=== PATIENT | female | born 1990 | race Caucasian/White ===

== ENCOUNTER 2019-04-30 03:44 | Emergency (ER) | payer OTHER, SELFPAY ==
--- NOTE | ~2019-04-30 | XR_ITS ---
EXAMINATION: XR chest 2V DATE: 04/30/2019 04:28 INDICATION: Cough. TECHNIQUE: Frontal and lateral views of the chest were obtained. COMPARISON: Chest 2 views 10/15/2016 FINDINGS: There is no pneumonia, pleural effusion, or pneumothorax. The heart size is normal. IMPRESSION: 1. No acute cardiopulmonary disease. Reviewed, dictated and finalized at location A. [facility]
[2019-04-30 03:46] VITALS: BP 141/89; PULSE 97; RESP 20; TEMP 36.4; O2SAT 98
--- NOTE | 2019-04-30 04:10 | ED.PSYCH ---
HPI - Psych General Chief Complaint: Psychiatric Symptoms <Buddy Taylor MD - Last Filed: 04/30/19 05:32> Stated Complaint: Pysch evaluation <Buddy Taylor MD - Last Filed: 04/30/19 05:32> Time Seen by Provider: 04/30/19 04:00 <Buddy Taylor MD - Last Filed: 04/30/19 05:32> Source: patient <Buddy Taylor MD - Last Filed: 04/30/19 05:32> Mode of arrival: ambulatory <Buddy Taylor MD - Last Filed: 04/30/19 05:32> Limitations: no limitations <Buddy Taylor MD - Last Filed: 04/30/19 05:32> History of Present Illness HPI Narrative: 29-year-old woman comes in today complaining of suicidal ideation, wanting drug treatment, and being distraught over her significant other recent . She states that this afternoon she woke up and found him next to her. She states she wants to follow him by OD. She denies prior suicidal ideation but has attempted outpatient drug treatment several times. <Buddy Taylor MD - Last Filed: 04/30/19 05:32> MD complaint: suicidal ideation and feels depressed <Buddy Taylor MD - Last Filed: 04/30/19 05:32> Onset (ago): day(s) (1) <Buddy Taylor MD - Last Filed: 04/30/19 05:32> Duration: constant <Buddy Taylor MD - Last Filed: 04/30/19 05:32> History of same: No <Buddy Taylor MD - Last Filed: 04/30/19 05:32> Relieving factors: none <Buddy Taylor MD - Last Filed: 04/30/19 05:32> Exacerbating factors: none <Buddy Taylor MD - Last Filed: 04/30/19 05:32> Context: recent drug abuse and significant life stressor <Buddy Taylor MD - Last Filed: 04/30/19 05:32> Associated psychiatric symptoms: depression and suicidal ideation <Buddy Taylor MD - Last Filed: 04/30/19 05:32> Associated symptoms: vomiting ( after taking fentanyl this morning.) <Buddy Taylor MD - Last Filed: 04/30/19 05:32> Treatments prior to arrival: none <Buddy Taylor MD - Last Filed: 04/30/19 05:32> If self harm: admits thoughts of self harm and has plan <Buddy Taylor MD - Last Filed: 04/30/19 05:32> Related Data Allergies/Adverse Reactions: Allergies Allergy/AdvReac Type Severity Reaction Status Date / Time No Known Allergies Allergy Verified 05/25/15 00:07 <Buddy Taylor MD - Last Filed: 04/30/19 05:32> Review of Systems Constitutional: Constitutional: Denies chills, Denies fatigue, Denies fever(s) and Denies weakness <Buddy Taylor MD - Last Filed: 04/30/19 05:32> Eyes: Eyes: Denies change in vision and Denies photophobia <Buddy Taylor MD - Last Filed: 04/30/19 05:32> ENT: Denies dysphagia, Reports nasal congestion and Denies sore throat <Buddy Taylor MD - Last Filed: 04/30/19 05:32> Cardiovascular: Cardiovascular: Denies chest pain and Denies radiating jaw, neck or arm pain <Buddy Taylor MD - Last Filed: 04/30/19 05:32> Respiratory: Respiratory: Denies cough, Denies dyspnea and Denies wheezing <Buddy Taylor MD - Last Filed: 04/30/19 05:32> Gastrointestinal: Gastrointestinal: Denies abdominal pain, Denies diarrhea, Reports nausea and Reports vomiting <Buddy Taylor MD - Last Filed: 04/30/19 05:32> Genitourinary: Genitourinary: Denies hematuria, Denies nocturia and Denies dysuria <Buddy Taylor MD - Last Filed: 04/30/19 05:32> Musculoskeletal: Musculoskeletal: Denies back pain, Denies arthralgias, Denies joint swelling and Denies muscle cramps <Buddy Taylor MD - Last Filed: 04/30/19 05:32> Integumentary/Breasts: Skin/Breast: Denies pruritus, Denies erythema and Denies rash <Buddy Taylor MD - Last Filed: 04/30/19 05:32> Neurologic: Denies vertigo, Denies dizziness and Denies syncope <Buddy Taylor MD - Last Filed: 04/30/19 05:32> Psychiatric: Psychiatric: Denies anxiety, Reports depression and Reports suicidal ideation <Buddy Taylor MD
--- NOTE | 2019-04-30 04:22 | ECG_ITS ---
Measurements Intervals Elizabeth Rate: 88 P: 30 AK: 156 QRS: 21 QRSD: 104 T: 31 QT: 368 QTc: 447 Interpretive Statements SINUS RHYTHM BASELINE ARTIFACT- I, II, III, AVL NORMAL ECG Electronically Signed On 04-30-2019 8:15:57 [employer]ET[employer] P[employer] by Valentín Lott D.O.
[2019-04-30 04:52] LABS: Basophils Absolute Auto 0.03 K/mm3 (0.00-0.10); Basophils Percent Auto 0.4 % (0.0-1.0); Eosinophils Absolute Auto 0.06 K/mm3 (0.02-0.50); Eosinophils Percent Auto 0.9 % (1.0-6.0); Hematocrit 40.1 % (35.0-49.0); Hemoglobin 13.8 g/dL (12.0-15.0); Immature Granulocyte Absolute 0.01 K/mm3 (0.00-0.00); Immature Granulocyte Percent A 0.1 % (0.0-0.0); Lymphocytes Percent Auto 39.2 % (18.0-42.0); Mean Corpuscular HGB Conc 34.4 g/dL (32.0-36.0); Mean Corpuscular Hemoglobin 30.6 pg (27.0-31.0); Mean Corpuscular Volume 88.9 fL (78.0-102.0); Mean Platelet Volume 11.3 fl (9.2-11.8); Monocytes Absolute Auto 0.37 K/mm3 (0.10-0.90); Monocytes Percent Auto 5.4 % (2.0-11.0); Neutrophils Absolute Auto 3.7 K/mm3 (1.7-7.2); Platelet Count Result 193 K/mm3 (150-420); Red Blood Count 4.51 M/mm3 (4.20-5.40); Red Cell Distribution Width 12.8 % (11.6-14.4); White Blood Count 6.9 K/mm3 (4.8-10.8)
[2019-04-30 04:56] LABS: Add Urine Microscopic? YES; Appearance Urine Clear (Clear); Bilirubin Urine Negative (Negative); Blood Urine Negative (Negative); Color Urine Yellow (Yellow); Glucose Urine UA Negative (Negative); Ketones Urine Negative (Negative); Leukocyte Esterase Ur 1+ LEU/UL (Negative); Nitrate Urine Negative (Negative); Protein Urine Negative (Negative); Urobilinogen Urine 0.2 mg/dL (0.2-1.0)
[2019-04-30 04:59] LABS: Pregnancy On Board Control Positive; Urine Pregnancy Test Negative
--- NOTE | 2019-04-30 05:00 | PC.NURSE ---
Pt. watching TV, sitter at bedside. Pt. crying and states she is scared to go to sleep.
[2019-04-30 05:04] LABS: Bacteria Urine Trace /hpf; RBC Urine None seen /hpf (0-2); Squamous Epithelial Cell Urine Few /hpf (Few); WBC Urine 0-3 /hpf (0-3)
[2019-04-30 05:09] LABS: Amphetamine Screen Urine Positive (Negative); Barbiturate Screen Urine Negative (Negative); Benzodiazepines Screen Urine Negative (Negative); Cannabinoid Screen Urine Negative (Negative); Cocaine Screen Urine Negative (Negative); Methadone Screen Urine Negative (Negative); Opiate Screen Urine Negative (Negative); Phencyclidine Screen Urine Negative (Negative)
[2019-04-30 05:12] LABS: Acetaminophen 0 ug/mL (10-30); Ethanol < 3 mg/dL (0-6); Salicylate 1.2 mg/dL (2.8-20.0)
[2019-04-30 05:17] LABS: Alanine Aminotransferase 152 U/L (14-59); Albumin Level 3.4 g/dL (3.4-5.0); Alkaline Phosphatase 88 U/L (46-116); Anion Gap 13.6 mmol/L (7-16); Aspartate Amino Transferase 85 U/L (15-37); Bilirubin,Total 0.3 mg/dL (0.00-1.00); Blood Urea Nitrogen 6 mg/dL (7-18); Calcium 8.7 mg/dL (8.5-10.1); Carbon Dioxide 24 mmol/L (21-32); Chloride 105 mmol/L (98-108); Estimated CRCL calculation 103 ml/min; Estimated Glomerular Filt Rate > 60; Glucose 109 mg/dL (70-99); Osmolality Calculated 286 mOsm/kg (285-295); Potassium 3.6 mmol/L (3.5-5.1); Sodium 139 mmol/L (136-145); Thyroid Stimulating Hormone 4.28 uIU/mL (0.36-3.74); Total Protein 6.8 g/dL (6.4-8.2)
--- NOTE | 2019-04-30 05:33 | PC.NURSE ---
Call placed to [facility] for mental Health eval. Awaiting call back from counselor.
[2019-04-30] MEDS: AMOXICILLIN 500 MG CAPSULE PO (05:37)
[2019-04-30] MEDS: IBUPROFEN 600 MG TABLET PO (05:38)
--- NOTE | 2019-04-30 05:53 | PC.NURSE ---
Call back from Susanne saleh [facility]. Will not be able to come for eval until p 0930 this AM. ERP informed, pt. will be placed as ER Hold.
--- NOTE | 2019-04-30 06:06 | PC.NURSE ---
Report given to Jayme Olson for pt. placement to ER Hold status until mental health can evaluate. Pt. cooperative c care and understands protocol.
--- NOTE | 2019-04-30 06:07 | PC.NURSE ---
Pt. to go to Rm 206 for ER Hold.
[2019-04-30 06:08] VITALS: BP 100/58; PULSE 81; RESP 18; O2SAT 98
--- NOTE | 2019-04-30 06:56 | PC.NURSE ---
Pt. sleeping, sitter at bedside.
--- NOTE | 2019-04-30 07:38 | PC.NURSE ---
Pt. taken to Rm 206 and report given to Jayme Smallwood
--- NOTE | 2019-04-30 07:45 | PC.NURSE ---
Patient brought to room 206 for ER hold while awaiting evaluation from Mental Health. Patient in bed resting quietly, sitter at bedside.
[2019-04-30 08:15] VITALS: BP 95/53; PULSE 75; RESP 18; TEMP 37.4; O2SAT 99
--- NOTE | 2019-04-30 08:45 | PC.NURSE ---
Patient ate 75% of breakfast tray, laying in bed resting and watching television
--- NOTE | 2019-04-30 10:44 | PC.NURSE ---
Report given to Jayme Sarah
--- NOTE | 2019-04-30 11:39 | PC.NURSE ---
Patient in bed, tearful at times. Sitter at bedside
[2019-04-30 13:54] VITALS: BP 95/53; PULSE 75; RESP 18; TEMP 37.4; O2SAT 99
[2019-05-02 12:57] LABS: HIV 1 P24 AG Negative (Negative); HIV 1/2 AB Negative (Negative)
[2019-05-06 05:31] LABS: Hepatitis A Antibody IgM Nonreactive; Hepatitis B Core Antibody Nonreactive (Nonreactive); Hepatitis B Surface Antigen Nonreactive (Nonreactive); Hepatitis C Additional Testing Has been added; Hepatitis C Virus Antibody Reactive (Nonreactive)
[2019-05-08 13:40] LABS: Hepatitis C Viral RNA PCR 216000 IU/mL
== END 2019-04-30 13:30 | disposition home or self-care (01) ==
PROVIDERS: Emergency Provider Emergency Medicine
DX: R45.851 Suicidal ideations (principal); F15.10 Other stimulant abuse, uncomplicated; F11.10 Opioid abuse, uncomplicated; F19.10 Other psychoactive substance abuse, uncomplicated; R79.9 Abnormal finding of blood chemistry, unspecified; J02.0 Streptococcal pharyngitis
CPT/HCPCS: 36415; 71046; 80053; 80074; 80307; 81001; 81025; 84443; 85025; 86703; 87077; 87086; 87088; 87186; 87880; 93005; 99284; A9270

== ENCOUNTER 2023-05-05 01:06 | Inpatient (IN) | payer OTHER, SELFPAY ==
[2023-05-05] VITALS (7 sets, daily range): BP systolic 94–126; BP diastolic 55–82; PULSE 63–106; RESP 15–16; TEMP 36.5–37.2; O2SAT 95–100; BMI 29.0
--- NOTE | ~2023-05-05 | CT_ITS ---
Noncontrast CT scan of the left elbow CLINICAL HISTORY: Pain and swelling, or abscess TECHNIQUE: Axial noncontrast imaging of the left elbow was performed. Sagittal and coronal reformatte d images were constructed. Dose reduction technique was used on this scan by utilizing automated expo sure control and iterative reconstruction technique. The dose-length product (DLP) was 465.07 mGy-cm. Findings: No fracture or dislocation seen. Joint spaces are preserved. No osseous destructive change or periosteal reaction seen. No joint effusion. There is diffuse subcutaneous soft tissue edema, especially involving the distal aspect of the upper arm extending around the posterior aspect of the elbow. There is an irregular collection of soft tiss ue gas anteriorly in the subcutaneous soft tissues at the level of the biceps myotendinous junction r egion, without distinct fluid collection. IMPRESSION: Diffuse subcutaneous soft tissue edema, especially the suspect a firm, compatible with cellulitis. Focal area of soft tissue gas anteriorly at the distal upper arm, as detailed above. Findings could r eflect gas forming organism/infection, or other necrotic change, versus less likely posttraumatic rosana nge. No osseous or articular abnormality evident. Reviewed, dictated and finalized at location . [employer]ING ENGINEER IMPRESSION: Diffuse subcutaneous soft tissue edema, especially the suspect a firm, compatib le with cellulitis. Focal area of soft tissue gas anteriorly at the distal upper arm, as detailed a marvin. Findings could reflect gas forming organism/infection, or other necrotic change, versus less likely posttraumatic change. No osseous or articular abnormality evident.
--- NOTE | ~2023-05-05 | XR_ITS ---
Left elbow Technique: AP, oblique, and lateral views were obtained. Clinical History: Pain Findings: No acute fracture or dislocation is seen. Osseous alignment is anatomic. Joint spaces are p reserved. There is no displacement of the fat pads, and no evidence of joint effusion. There is focal small soft tissue gas at the anterior aspect of the distal upper arm, with probable mild diffuse sof t tissue swelling. Impression: No osseous or articular abnormality. Probable small amount of soft tissue gas in the distal aspect of the anterior forearm with mild diffu se soft tissue swelling. Correlate for soft tissue infectious process or posttraumatic change. Reviewed, dictated and finalized at location . [employer] WORKER Impression: No osseous or articular abnormality. Probable small amount of soft tissue gas in the distal aspect of the anterior f orearm with mild diffuse soft tissue swelling. Correlate for soft tissue infect ious process or posttraumatic change.
--- NOTE | 2023-05-05 02:30 | PC.NURSE ---
This RN attempted x1. MICHELLE Veras attempted line and lab draws at this time.
--- NOTE | 2023-05-05 02:31 | ED.GENADULT ---
HPI - General Adult General Chief complaint: Extremity Injury, Upper Stated complaint: R arm pain, swelling Time Seen by Provider: 05/05/23 01:50 History of Present Illness HPI narrative: patient 33-year-old female presents emergency department with chief complaint of left upper extremity pain patient reports that for several days she has noticed a rash present in the antecubital fossa area of her left arm patient states the areas become swollen tender reports that it is worsened by movement. Patient reports that she does have history of IV drug use and reports that she last shot up without arm about a week ago Related Data Allergies Allergy/AdvReac Type Severity Reaction Status Date / Time No Known Allergies Allergy Verified 05/05/23 01:25 Review of Systems Review of Systems: A 10 system review of systems was completed on the patient and is negative except for what is stated in the HPI. Nursing and ancillary documentation was reviewed. [facility] Surgical History Surgical History H/O left wrist surgery S/P cholecystectomy Social History Social History Smoking status: Current every day smoker Alcohol intake: former Substance use: current Substance use type: opiates, methamphetamine and prescription drug Other substance usage details: Took clonidine and a benzodiazepine recently Living arrangements: with family Exam Narrative: GENERAL: Well-appearing, well-nourished, and in no acute distress. HEAD: Normocephalic, atraumatic. EYES: PERRLA and EOMI. ENT: Nares clear, no rhinorrhea or epistaxis. Mucous membranes moist. NECK: Supple. CHEST: Clear to auscultation. No respiratory distress. HEART: Regular rate and rhythm. No murmur heard. Normal peripheral pulses. ABDOMEN: Soft, nontender, nondistended, normal active bowel sounds. EXTREMITIES: Normal range of motion. No edema. there is redness and swelling present in the left antecubital fossa SKIN: Warm, dry, no rash. NEURO: No focal deficits. Alert and oriented x3. PSYCH: Normal mood and affect. Course Vital Signs Vital signs: Vital Signs Temperature 36.8 C 05/05/23 01:14 Pulse Rate 63 05/05/23 01:14 Respiratory Rate 15 05/05/23 01:14 Blood Pressure 126/73 05/05/23 01:14 Pulse Oximetry 95 05/05/23 01:14 Oxygen Delivery Room Air 05/05/23 01:14 Temperature 37.2 C 05/05/23 01:29 Pulse Rate 70 05/05/23 03:27 Respiratory Rate 16 05/05/23 03:27 Blood Pressure 118/67 05/05/23 03:27 Pulse Oximetry 98 05/05/23 03:27 Oxygen Delivery Room Air 05/05/23 01:14 Medical Decision Making MDM Narrative Medical decision making narrative: differential diagnosis includes abscess, cellulitis, necrotizing fasciitis, laboratory studies were obtained which showed a white count of 15 urinalysis did show 11-20 white blood cells in the urine plain film x-ray showed possible gas the subcu tissue CT scan of the left elbow showed extensive cellulitis and small focus of emphysema in the volar aspect of the upper arm. This was discussed with Dr. Shrestha who was on-call for surgery the patient was started on broad-spectrum coverage that would cover for necrotizing fasciitis including vancomycin meropenem and clindamycin surgery will consult on the patient and recommended the patient be admitted to the hospitalist service Vital Signs Vital Signs: Vital Signs Temperature 36.8 C 05/05/23 01:14 Pulse Rate 63 05/05/23 01:14 Respiratory Rate 15 05/05/23 01:14 Blood Pressure 126/73 05/05/23 01:14 Pulse Oximetry 95 05/05/23 01:14 Oxygen Delivery Room Air 05/05/23 01:14 Temperature 37.2 C 05/05/23 01:29 Pulse Rate 70 05/05/23 03:27 Respiratory Rate 16 05/05/23 03:27 Blood Pressure 118/67 05/05/23 03:27 Pulse Oximetry 98 05/05/23 03:27 Oxygen Delivery Room
[2023-05-05 03:24] LABS: Basophils Percent Auto 0.2 % (0.2-1.2); Eosinophils Absolute Auto 0.1 K/mm3 (0-0.3); Eosinophils Percent Auto 0.3 % (0-4.4); Hematocrit 36.2 % (37.0-47.0); Hemoglobin 12.5 g/dL (12.0-15.0); Immature Granulocyte Absolute 0.04 K/mm3 (0.00-0.031); Immature Granulocyte Percent A 0.3 % (0-0.5); Lymphocytes Percent Auto 17.3 % (18.3-44.2); Mean Corpuscular HGB Conc 34.5 g/dl (32-36); Mean Corpuscular Hemoglobin 30.2 pg (26-34); Mean Corpuscular Volume 87.4 fl (80-100); Mean Platelet Volume 11.2 fl (7.4-10.4); Monocytes Percent Auto 6.3 % (2.6-8.5); Neutrophils Absolute Auto 11.4 K/mm3 (1.3-6.7); Neutrophils Percent Auto 75.6 % (45.5-73.1); Platelet Count Result 193 k/mm3 (150-375); Red Blood Count 4.14 M/mm3 (4.2-5.4); Red Cell Distribution Width 13.5 % (11.5-14.5)
[2023-05-05 03:34] LABS: Alanine Aminotransferase 30 U/L (6-35); Albumin Level 3.1 g/dL (3.5-5.1); Alkaline Phosphatase 61 U/L (38-126); Anion Gap 6 mmol/L (8-16); Aspartate Amino Transferase 25 U/L (14-36); Bilirubin,Total 0.9 mg/dL (0.2-1.3); Blood Urea Nitrogen 10 mg/dL (7-17); Calcium 8.3 mg/dL (8.4-10.2); Carbon Dioxide 22 mmol/L (22-30); Chloride 101 mmol/L (98-107); Estimated CRCL calculation 145 ml/min; Estimated Glomerular Filt Rate > 60; Glucose 139 mg/dL (65-110); Potassium 3.5 mmol/L (3.4-5.0); Sodium 129 mmol/L (137-145)
[2023-05-05 03:52] LABS: Appearance Urine Cloudy (Clear); Bacteria Urine Rare /hpf; Bilirubin Urine 1+ (Negative); Blood Urine 3+ (Negative); Glucose Urine UA Negative (Negative); Ketones Urine Trace mg/dL (Negative); Leukocyte Esterase Ur Trace LEU/UL (Negative); Need Manual Microscopic Reviewed; Nitrate Urine Negative (Negative); Protein Urine Trace mg/dL (Negative); RBC Urine 0-2 /hpf (0-2); Specific Grav Ur 1.037 (1.001-1.035); Squamous Epithelial Cell Urine Few /hpf (Few); pH Urine 5.5 (5.0-9.0)
[2023-05-05 03:53] LABS: Add Urine Microscopic? YES; Color Urine Amber (Yellow)
--- NOTE | 2023-05-05 05:33 | PC.NURSE ---
Phlebotomy called by MICHELLE Medina to stick patient for blood cultures. Pt abx at bedside and at nurses station to be infused after cultures are obtained.
[2023-05-05 06:47] LABS: Chlamydia trachomatis DETECTED (NOT DETECTE); Neisseria gonorrhoeae PCR NOT DETECTED (NOT DETECTE)
[2023-05-05] MEDS: ACETAMINOPHEN 325 MG TABLET 650 MG PO (06:59)
--- NOTE | 2023-05-05 07:27 | ADMGEN ---
This patient, Shameka Salas, was admitted to [address] [place] [address] Room 315-02 at 0700. Patient/family oriented to hospital policies and general routines including ID bracelet, bed and alarms, visiting hours, pain management, procedures, bathroom and other care routines, personal items, smoking policy, room service/diet, and visiting hours. Information on how to activate the Rapid Response Team has been discussed. Patient/Family are encouraged to report perceived risks to care and to ask questions if they do not understand what they are told or what they should do.
[2023-05-05 08:56] LABS: Lactic Acid Reflex 0.7 mmol/L (0.7-2.0)
[2023-05-05] MEDS: SODIUM CHLORIDE 0.9% IV 1,000 ML 125 ML IV CONT (09:03)
[2023-05-05 09:07] LABS: D Dimer 0.41 ug/mL (<0.48)
[2023-05-05] MEDS: MEROPENEM 1 GM/NS 100 ML 1 GM/100 ML BAG IVPB ×2 (10:21→22:08)
[2023-05-05] MEDS: CLINDAMYCIN 900 MG/D5W 50 ML 900 MG/50 ML PIGGYBACK 50 MG IVPB ×2 (10:23→18:47)
[2023-05-05] MEDS: VANCOMYCIN 2,000 MG/NS 500 ML 2,000 MG/500 ML BAG 250 MG IVPB (11:09)
--- NOTE | 2023-05-05 11:20 | PM.CNGS ---
Assessment and Plan Assessment and plan (1) Cellulitis of arm, left: Code(s): L03.114 - Cellulitis of left upper limb Status: Acute Assessment and Plan: Left upper arm cellulitis with CT findings showing a gas collection with no obvious fluid collection in the distal anterior upper arm. There is no largely evident fluctuance on exam. She has appropriate coverage for a necrotizing soft tissue infection. We would recommend to continue broad-spectrum IV antibiotics and closely monitor. If she develops more of a fluctuant area and obvious abscess, then we could proceed with incision and drainage. Discussed this with the patient. Will also discuss options (2) IV drug user: Code(s): F19.90 - Other psychoactive substance use, unspecified, uncomplicated Status: Acute Assessment and Plan: Encouraged cessation (3) Tobacco abuse: Code(s): Z72.0 - Tobacco use Status: Acute Assessment and Plan: Encouraged cessation (4) Chlamydia: Code(s): A74.9 - Chlamydial infection, unspecified Status: Acute Assessment and Plan: Discussed with ID pharmacist. Unfortunately there is no coverage for her chlamydia treatment with her current antibiotics. Will add oral doxycycline. Plan I have discussed the patient's case and plan of care with Dr. Shrestha. History of Present Illness Consult details Consult date: 05/05/23 Reason for consult: other (Left arm cellulitis with CT evidence of subcutaneous emphysema) Requesting physician: Jason Garcia MD Narrative: This is a 33-year-old woman who presented to the ER last night with complaints of left arm swelling, redness, and pain. She admits to IV drug use, specifically in methamphetamine. She reports using a needle in her left upper arm about 2 days prior to her symptoms. Two days ago, she noticed some pain in her left upper arm. Overnight, she developed swelling and redness that significantly worsened throughout the day yesterday. She then presented to the ER. [place] [address]. Lactic acid 0.7. Left elbow x-ray showed no osseous or articular abnormality. Probable small amount of soft tissue gas in the distal aspect of the anterior forearm with mild diffuse soft tissue swelling. Left elbow CT showed diffuse subcutaneous soft tissue edema, especially involving the distal aspect of the upper arm extending around the posterior aspect of the elbow consistent with cellulitis, with an irregular collection of soft tissue gas anteriorly in the subcutaneous soft tissues at the level of the biceps myotendinous junction region without distinct fluid collection. Findings could reflect gas-forming organism/infection, or other necrotic change versus less likely posttraumatic change. No osseous or articular abnormality evident. Our service was consulted for cellulitis with subcutaneous emphysema seen on CT. She was admitted to the hospitalist service and started on broad-spectrum IV antibiotics. She is currently on IV meropenem, clindamycin, and vancomycin. She is unable to completely straighten her left arm at the elbow due to pain and swelling. She reports having a left lower arm skin infection in the past due to her IV drug use that was treated with IV antibiotics. Denies any previous abscess that required incision and drainage. In review of her chart, it appears she also tested positive for chlamydia in the ER. Review of Systems Review of Systems: All systems reviewed & are unremarkable except as noted in HPI and below PMFSH Past Medical History Medical History IV drug user Surgical History Surgical History H/O left wrist surgery S/P cholecystectomy Social History Social History Smoking status: Current every day smoker Alcohol intake: former Substance use: current Substance use type: opi
--- NOTE | 2023-05-05 13:58 | PM.IMHP ---
H&P: HPI History of Present Illness Date/Time: 05/05/23 13:58 Chief Complaint: left arm swelling and redness Narrative: 33 yo female with PMH, who presented to the ER on account left arm swelling and redness of 2 days duration. She stated she is IVDU of Methamphetamine and injects frequently on left arm, symptoms started 3 days after injection. Otherwise denies any chest pain, SOB, fever, vomiting or diarrhea. Noted that last drug use was 4 days ago. ER eval notable for white count 15, AST 85, ALT 152, for a chlamydia Trichomonas positive, hepatitis-C antibody positive. Started on meropenem, vancomycin and clindamycin general surgery consulted. Also on doxycycline for chlamydia. Review of Systems Review of Systems: Of the systems were reviewed and negative except as noted above history of ulcerative PMFSH Past Medical History Medical History IV drug user Surgical History Surgical History H/O left wrist surgery S/P cholecystectomy Social History Social History Smoking status: Current every day smoker Alcohol intake: former Substance use: current Substance use type: opiates, methamphetamine and prescription drug Other substance usage details: Took clonidine and a benzodiazepine recently Do You Feel Safe in your Home?: Yes Lack of Transportation: No Lack of Food: Never True Current Housing: I Have Housing Concerned About Future Housing: No Difficulty Paying Gas/Electric Bills: No Difficulty Paying for Meds: No Currently Unemployed: No Education: High School Diploma/GED Difficulty w/ Childcare or Family Care: No Living arrangements: with family Spiritual care concerns: No Meds Home Medications and Allergies Allergies Allergy/AdvReac Type Severity Reaction Status Date / Time No Known Allergies Allergy Verified 05/05/23 01:25 Vital Signs Vital Signs - 24 hr 05/05/23 01:14 05/05/23 01:29 05/05/23 03:27 Temperature 98.3 F 98.9 F Pulse Rate 63 75 70 Respiratory Rate 15 15 16 Blood Pressure 126/73 110/60 118/67 Pulse Oximetry 95 100 98 Oxygen Delivery Room Air 05/05/23 05:45 05/05/23 09:20 05/05/23 08:00 Temperature Pulse Rate 69 Respiratory Rate 16 Blood Pressure 120/82 Pulse Oximetry 100 97 Oxygen Delivery Room Air Room Air Exam Const: General: comfortable HENMT: Ears: TM's normal bilaterally Eyes: General: appearance normal, both eyes and all related structures Neck: Neck: supple Resp: Effort & Inspection: normal respiratory effort Cardio: Rate: regular rate Rhythm: regular rhythm GI: GI Palp: Yes Soft to palpation Skin: Other: left arm redness and mass Neuro: General: gait normal Speech: normal speech Motor exam (neuro): 5/5 motor strength present throughout and Normal motor muscle tone present throughout Sensory Exam: normal sensation H&P: Results Labs Labs: Short CBC 05/05/23 Range/Units 03:20 WBC 15.0 H (4.5-10.0) K/mm3 Hgb 12.5 (12.0-15.0) g/dL Hct 36.2 L (37.0-47.0) % Plt Count 193 (150-375) k/mm3 BMP 05/05/23 03:20 Sodium 129 L Potassium 3.5 Chloride 101 Carbon Dioxide 22 BUN 10 Creatinine 0.50 L Glucose 139 H Calcium 8.3 L Liver Function 05/05/23 Range/Units 03:20 Total Bilirubin 0.9 (0.2-1.3) mg/dL AST 25 (14-36) U/L ALT 30 (6-35) U/L Alkaline Phosphatase 61 (38-126) U/L Albumin 3.1 L (3.5-5.1) g/dL Urine 05/05/23 Range/Units 03:20 Urine Color Wilma (Yellow) Urine Appearance Cloudy H (Clear) Urine pH 5.5 (5.0-9.0) Ur Specific [place] 1.037 H (1.001-1.035) Urine Protein Trace (Negative) mg/dL Urine Glucose (UA) Negative (Negative) mg/dL Assessment and Plan Assessment and plan (1) Chlamydia: Code(s): A74.9 - Chlamydial infection, unspecified Status: Acute
[2023-05-05] MEDS: DOXYCYCLINE HYCLATE 100 MG TABLET PO ×2 (15:59→22:09)
[2023-05-05] MEDS: SODIUM CHLORIDE 0.9% IV 1,000 ML 70 ML IV CONT (16:41)
[2023-05-06] VITALS (9 sets, daily range): BP systolic 89–115; BP diastolic 50–105; PULSE 68–97; RESP 14–21; TEMP 35.9–37.2; O2SAT 94–100
[2023-05-06] MEDS: VANCOMYCIN 1,500 MG/NS 500 ML 1,500 MG/500 ML BAG 250 MG IVPB ×2 (01:26→11:24)
[2023-05-06] MEDS: MEROPENEM 1 GM/NS 100 ML 1 GM/100 ML BAG IVPB ×2 (04:19→08:59)
[2023-05-06] MEDS: CLINDAMYCIN 900 MG/D5W 50 ML 900 MG/50 ML PIGGYBACK 50 MG IVPB ×3 (05:22→18:23)
[2023-05-06 07:11] LABS: Basophils Percent Auto 0.2 % (0.2-1.2); Eosinophils Absolute Auto 0.1 K/mm3 (0-0.3); Eosinophils Percent Auto 0.9 % (0-4.4); Hematocrit 38.2 % (37.0-47.0); Hemoglobin 11.8 g/dL (12.0-15.0); Immature Granulocyte Absolute 0.03 K/mm3 (0.00-0.031); Immature Granulocyte Percent A 0.3 % (0-0.5); Lymphocytes Absolute Auto 2.21 K/mm3 (0.9-3.2); Mean Corpuscular HGB Conc 30.9 g/dl (32-36); Mean Corpuscular Volume 97.2 fl (80-100); Mean Platelet Volume 11.2 fl (7.4-10.4); Monocytes Absolute Auto 0.4 K/mm3 (0.1-0.6); Monocytes Percent Auto 4.8 % (2.6-8.5); Neutrophils Absolute Auto 6.1 K/mm3 (1.3-6.7); Neutrophils Percent Auto 68.8 % (45.5-73.1); Platelet Count Result 165 k/mm3 (150-375); Red Blood Count 3.93 M/mm3 (4.2-5.4); Red Cell Distribution Width 13.6 % (11.5-14.5); White Blood Count 8.8 K/mm3 (4.5-10.0)
[2023-05-06] MEDS: DOXYCYCLINE HYCLATE 100 MG TABLET PO ×2 (08:25→20:17)
[2023-05-06 09:00] LABS: Lactic Acid Reflex 1.4 mmol/L (0.7-2.0)
[2023-05-06 09:01] LABS: Alanine Aminotransferase 28 U/L (6-35); Albumin Level 2.9 g/dL (3.5-5.1); Alkaline Phosphatase 54 U/L (38-126); Anion Gap 7 mmol/L (8-16); Aspartate Amino Transferase 32 U/L (14-36); Bilirubin,Total 0.6 mg/dL (0.2-1.3); Blood Urea Nitrogen 6 mg/dL (7-17); Calcium 7.8 mg/dL (8.4-10.2); Carbon Dioxide 20 mmol/L (22-30); Chloride 107 mmol/L (98-107); Estimated CRCL calculation 145 ml/min; Estimated Glomerular Filt Rate > 60; Glucose 103 mg/dL (65-110); Magnesium 2.1 mg/dL (1.6-2.3); Potassium 4.1 mmol/L (3.4-5.0); Sodium 134 mmol/L (137-145)
--- NOTE | 2023-05-06 13:47 | PM.IMPN ---
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 No fever chest pain shortness of breath. ER evaluation noted full for white cell count of 15 kg elevated AST ALT elevated positive for chlamydia and Trichomonas hepatitis-C antibody positive started on vancomycin clindamycin meropenem. General surgery consulted. On doxycycline for chlamydia diagnosis left upper extremity cellulitis with CT findings gas collection with no obvious fluid collection the distal anterior upper arm will taper off clindamycin switch meropenem to ceftriaxone. Leukocytosis has normalized. Mild hyponatremia is improved. 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 No fever chest pain shortness of breath. ER evaluation noted full for white cell count of 15 kg elevated AST ALT elevated positive for chlamydia and Trichomonas hepatitis-C antibody positive started on vancomycin clindamycin meropenem. General surgery consulted. On doxycycline for chlamydia Review of Systems Review of Systems: All systems reviewed & are unremarkable except as noted in HPI and below Exam Narrative: GENERAL: Well-appearing, well-nourished, and in no acute distress. HEAD: Normocephalic, atraumatic. EYES: PERRLA and EOMI. ENT: Nares clear, no rhinorrhea or epistaxis.? Mucous membranes moist. NECK: Supple. CHEST: Clear to auscultation.? No respiratory distress. HEART: Regular rate and rhythm.? No murmur heard.? Normal peripheral pulses. ABDOMEN: Soft, nontender, nondistended, normal active bowel sounds. EXTREMITIES: Normal range of motion.? No edema. there is redness and swelling present in the left antecubital fossa SKIN: Warm, dry, no rash. NEURO: No focal deficits.? Alert and oriented x3. PSYCH: Normal mood and affect. Objective Data Vital Signs Vital Signs: Vital Signs - 24 hr 05/05/23 14:00 05/05/23 20:56 05/05/23 20:00 Temperature 98.1 F 97.7 F Pulse Rate 106 H 104 H Respiratory Rate 16 16 Blood Pressure 98/59 L 94/55 L Pulse Oximetry 100 100 Oxygen Delivery Room Air 05/06/23 05:12 Temperature 97.7 F Pulse Rate 97 Respiratory Rate 16 Blood Pressure 96/50 L Pulse Oximetry 100 Oxygen Delivery Intake/Output Intake/Output: Intake & Output 05/03/23 05/04/23 05/05/23 05/06/23 23:59 23:59 23:59 23:59 Intake Total 1780 1850 Balance 1780 1850 Meds/Results Medications: Active Medications Generic Name Dose Route Start Last Admin Trade Name Freq PRN Reason Stop Dose Admin Acetaminophen 650 mg 05/05/23 05:25 05/05/23 06:59 Acetaminophen 325 Mg Tablet PO 650 mg Q4H PRN Administration Mild Pain (1-3) or Fever Doxycycline Hyclate 100 mg 05/05/23 12:00 05/06/23 08:25 Doxycycline Hyclate 100 Mg Tablet PO 05/11/23 21:01 100 mg Q12HR ARIANNA Administration Clindamycin Phosphate 900 mg in 50 mls @ 50 mls/hr 05/05/23 18:00 05/06/23 10:52 Cleocin 900 Mg/D5w 50 Ml IVPB 05/06/23 23:59 Infused Q8H ARIANNA Infusion Sodium Chloride 1,000 mls @ 70 mls/hr 05/05/23 05:25 05/05/23 16:41 Normal Saline
--- NOTE | 2023-05-06 15:22 | WPDPN ---
Progress Note: A&P Assessment and Plan (1) Cellulitis of arm, left: Code(s): L03.114 - Cellulitis of left upper limb Status: Acute Assessment and Plan: Cellulitis left upper arm has improved on the IV antibiotics however she has now demarcated well-defined 2 to 3 cm abscess. She will need to come to the operating room for incision and drainage of the abscess later today. Risks, benefits, indications, and expected outcomes were discussed in detail with the patient and/or family. They understand and I have answered all other questions. They wished to proceed with surgery as outlined above. Subjective Date/time seen: 05/06/23 15:22 Interval history: Patient still complains of having severe left arm pain. She cannot fully extend her left arm. No fever. White blood cell count decreased from 15,000 down to normal at 8000. Exam Extrem: Other: Left arm just above the left elbow still very swollen with severe tenderness and a 2 to 3 cm area of fluctuance which is easily palpable now. The redness circumferentially has decreased but she has not demarcated a well-defined abscess cavity. Objective Data Vital Signs Vital Signs: Vital Signs - 24 hr 05/05/23 20:56 05/05/23 20:00 05/06/23 05:12 Temperature 36.5 C 36.5 C Pulse Rate 104 H 97 Respiratory Rate 16 16 Blood Pressure 94/55 L 96/50 L Pulse Oximetry 100 100 Oxygen Delivery Room Air 05/06/23 14:00 Temperature 36.2 C L Pulse Rate 92 Respiratory Rate 14 Blood Pressure 89/51 L Pulse Oximetry 100 Oxygen Delivery Intake/Output Intake/Output: Intake & Output 05/03/23 05/04/23 05/05/23 05/06/23 23:59 23:59 23:59 23:59 Intake Total 1780 1850 Balance 1780 1850 Meds/Results Medications: Active Medications Generic Name Dose Route Start Last Admin Trade Name Freq PRN Reason Stop Dose Admin Acetaminophen 650 mg 05/05/23 05:25 05/05/23 06:59 Acetaminophen 325 Mg Tablet PO 650 mg Q4H PRN Administration Mild Pain (1-3) or Fever Doxycycline Hyclate 100 mg 05/05/23 12:00 05/06/23 08:25 Doxycycline Hyclate 100 Mg Tablet PO 05/11/23 21:01 100 mg Q12HR ARIANNA Administration Clindamycin Phosphate 900 mg in 50 mls @ 50 mls/hr 05/05/23 18:00 05/06/23 10:52 Cleocin 900 Mg/D5w 50 Ml IVPB 05/06/23 23:59 Infused Q8H ARIANNA Infusion Sodium Chloride 1,000 mls @ 70 mls/hr 05/05/23 05:25 05/05/23 16:41 Normal Saline Iv IV CONT 70 mls/hr .[id number] ARIANNA Administration Vancomycin HCl 1,500 mg in 500 mls @ 250 mls/hr 05/05/23 23:00 05/06/23 13:24 Vancomycin 1,500 Mg/Ns 500 Ml IVPB Infused Q12H ARIANNA Infusion Ceftriaxone Sodium 2 gm in 100 mls @ 200 mls/hr 05/06/23 18:00 Rocephin 2 Gm/Ns 100 Ml IVPB Q24H ARIANNA Ondansetron HCl 4 mg 05/05/23 05:25 Ondansetron Inj 4 Mg/2 Ml Vial IV PUSH Q4H PRN Nausea Radiology Results: ITS Impressions Elbow X-Ray 05/05/23 05:32 Impression: No osseous or articular abnormality. Probable small amount of soft tissue gas in the distal aspect of the anterior forearm with mild diffuse soft tissue swelling. Correlate for soft tissue infectious process or posttraumatic change. Elbow CT 05/05/23 05:39 IMPRESSION: Diffuse subcutaneous soft tissue edema, especially the suspect a firm, compatible with cellulitis. Focal area of soft tissue gas anteriorly at the distal upper arm, as detailed above. Findings could reflect gas forming organism/infection, or other necrotic change, versus less likely posttraumatic change. No osseous or articular abnormality evident. Labs Labs: Laboratory Results - last 24 hr 05/06/23 05/06/23 07:02 07:56 WBC 8.8 RBC 3.93 L Hgb 11.8 L Hct 38.2 MCV 97.2 D MCH 30.0 MCHC 30.9 L RDW 13.6 Plt Count 165 MPV 11.2 H Immature Gran % (Auto) 0.3 Neut % (Auto) 68.8 Lymph % (Auto) 25.0 [place] % (Auto) 4.8 Eos % (Auto) 0.9 Baso % (Auto) 0.2 Lymph
--- NOTE | 2023-05-06 15:30 | WPDHPUPDATE1 ---
History and Physical Update Update Date/Time: 05/06/23 15:30 History and Physical has been reviewed, including an updated exam of the patient. There are NO changes in the patient's condition. Risks, benefits, and alternatives have been discussed and questions answered. Patient agrees to proceed with procedure.
--- NOTE | 2023-05-06 15:40 | WPDANESEPPF ---
Anes - Initial Pre Proc Eval Procedure: Operation Date: 05/06/23 16:00 Proposed Procedures p Incision and Drainage Left Upper Arm Abscess - Baldomero Shrestha MD Date/Time: 05/06/23 15:40 Surgeon: Laisha Alvarado MD Pre Op Diagnosis: cellulitis left uppper extremity Patient Data Age: 33 Gender: F Height: 1.68 m Weight: 81.8 kg Last Vital Signs Temp 36.2 C L 05/06/23 14:00 Pulse 92 05/06/23 14:00 Resp 14 05/06/23 14:00 BP 89/51 L 05/06/23 14:00 Pulse Ox 100 05/06/23 14:00 O2 Del Method Room Air 05/05/23 20:00 Allergies Allergy/AdvReac Type Severity Reaction Status Date / Time No Known Allergies Allergy Verified 05/05/23 01:25 Laboratory Tests 05/06/23 05/06/23 07:02 07:56 WBC 8.8 K/mm3 (4.5-10.0) RBC 3.93 L M/mm3 (4.2-5.4) Hgb 11.8 L g/dL (12.0-15.0) Hct 38.2 % (37.0-47.0) MCV 97.2 D fl (80-100) MCH 30.0 pg (26-34) MCHC 30.9 L g/dl (32-36) RDW 13.6 % (11.5-14.5) Plt Count 165 k/mm3 (150-375) MPV 11.2 H fl (7.4-10.4) Immature Gran % (Auto) 0.3 % (0-0.5) Neut % (Auto) 68.8 % (45.5-73.1) Lymph % (Auto) 25.0 % (18.3-44.2) [place] % (Auto) 4.8 % (2.6-8.5) Eos % (Auto) 0.9 % (0-4.4) Baso % (Auto) 0.2 % (0.2-1.2) Lymph # (Auto) 2.21 K/mm3 (0.9-3.2) [place] # (Auto) 0.4 K/mm3 (0.1-0.6) Eos # (Auto) 0.1 K/mm3 (0-0.3) Baso # (Auto) 0.0 K/mm3 (0.0-0.1) Abs Immat Gran (auto) 0.03 K/mm3 (0.00-0.031) Absolute Neuts (auto) 6.1 K/mm3 (1.3-6.7) Absolute Nucleated RBC 0.0 K/mm3 (0.0-0.012) Nucleated RBC % 0.0 % (0.0-0.2) Sodium 134 L mmol/L (137-145) Potassium 4.1 mmol/L (3.4-5.0) Chloride 107 mmol/L (98-107) Carbon Dioxide 20 L mmol/L (22-30) Anion Gap 7 L mmol/L (8-16) BUN 6 L mg/dL (7-17) Creatinine 0.50 L mg/dL (0.7-1.0) Estim Creat Clear Calc 145 ml/min Estimated GFR > 60 (59 - ) Glucose 103 mg/dL (65-110) Lactic Acid 1.4 mmol/L (0.7-2.0) Calcium 7.8 L mg/dL (8.4-10.2) Magnesium 2.1 mg/dL (1.6-2.3) Total Bilirubin 0.6 mg/dL (0.2-1.3) AST 32 U/L (14-36) ALT 28 U/L (6-35) Alkaline Phosphatase 54 U/L (38-126) Total Protein 6.0 L g/dL (6.3-8.2) Albumin 2.9 L g/dL (3.5-5.1) Patient hx anesthesia problems: none Family hx anesthesia problems: none Results Review: All pre-operative results and documents have been reviewed as part of the pre-operative evaluation. [facility] Past Medical History Medical History IV drug user Surgical History Surgical History H/O left wrist surgery S/P cholecystectomy Social History Social History Smoking status: Current every day smoker Alcohol intake: former Substance use: current Substance use type: opiates, methamphetamine and prescription drug Other substance usage details: Took clonidine and a benzodiazepine recently Do You Feel Safe in your Home?: Yes Lack of Transportation: No Lack of Food: Never True Current Housing: I Have Housing Concerned About Future Housing: No Difficulty Paying Gas/Electric Bills: No Difficulty Paying for Meds: No Currently Unemployed: No Education: High School Diploma/GED Difficulty w/ Childcare or Family Care: No Living arrangements: with family Spiritual care concerns: No Anes - Eval Final PreProcedure Day of Procedure 05/06/23 15:40 Patient weight: overweight Heart: regular rate and rhythm Lungs: clear to auscultation Airway: Mallampati scale class II Neurological: alert and oriented Last oral intake: >/= 8 hours ASA classification: III Emergent: no Anesthetic plan: proceed Anesthesia typ
[2023-05-06] MEDS: LACTATED RINGERS 1,000 ML 30 ML IV CONT (15:50)
[2023-05-06] MEDS: MIDAZOLAM HCL (*CRX) 2 MG/2 ML VIAL IV PUSH (15:50)
[2023-05-06] MEDS: fentaNYL CITRATE INJ (*CRX) 100 MCG/2 ML VIAL 50 MCG IV PUSH ×2 (15:50→15:55)
--- NOTE | 2023-05-06 16:09 | PC.NURSE ---
Addendum entered by Mignon Cortes RN 05/06/23 16:26: pt left at 1538 Original Note: To OR per [Brandie ], IV [22 r FA]. Report given to [ Farhat].
[2023-05-06] MEDS: LIDO 1%/EPINEPHRINE 1:100,000 50 ML VIAL 6 ML INFILTRATE (16:13)
[2023-05-06] MEDS: fentaNYL CITRATE INJ (*CRX) 100 MCG/2 ML VIAL 25 MCG IV PUSH ×3 (16:30→16:54)
--- NOTE | 2023-05-06 17:02 | PC.NURSE ---
Returned from OR per [ ]. Report received from [elza ].
[2023-05-06] MEDS: cefTRIAXone 2 GM/NS 100 ML 2 GM/100 ML BAG IVPB (17:22)
--- NOTE | 2023-05-06 19:34 | P.OP_ITS ---
Procedure Note - Detailed Date of Procedure 05/06/23 Pre-op Diagnosis cellulitis left uppper extremity Post-op Diagnosis Other ( Left upper extremity abscess.) Procedure Performed Incision and drainage of left upper arm abscess. Surgeon Baldomero Shrestha MD Anesthesia MAC and Local Indications Patient is a 33-year-old female was admitted to the hospital 2 days ago after complaining having redness and swelling in her left upper arm just proximal to the antecubital fossa where she had injected some IV drugs. Initial CT scan showed only a very small fluid collection with surrounding edema and swelling suggestive of severe cellulitis. Over the past 24hours on IV antibiotics the redness around the arm has improved however she has now developed a well-defined subcutaneous abscess cavity just proximal to the antecubital fossa. She presents now for incision and drainage of the abscess. Findings There was approximately 3cm abscess just proximal to the crease in the left upper arm of the elbow. After incising the abscess cavity open approxi [id number] of pus drained out of the abscess cavity. A culture swab was sent to microbiology. There is no erosion the underlying muscle for neurovascular structures. Description of Procedure After informed consent was obtained patient brought to the operating room she was placed supine position and placed under IV sedation by Anesthesia. The area of the left upper arm to the mid form was then prepped and draped usual sterile fashion. A time-out was then performed correctly identifying the patient as well as procedure to be performed verifying the site marking. She was already on scheduled IV antibiotics. 1% lidocaine mixed with 0.5% Marcaine with epinephrine was injected just above the crease left antecubital fossa. This was over the area of maximal fluctuance. I then made a small 1.5cm transverse incision with a scalpel over the most fluctuant area and quickly entered the abscess cavity. About 25cc of pus drained out of the abscess cavity. I obtained a culture swab and sent this for microbiology. I then spread inside the abscess cavity with a Jory clamp to break down any loculations. The abscess cavity seemed to be about 3cm in diameter and extended towards the elbow crease. Did not seem to be any evidence of erosion into the muscle or vascular structures. I irrigated out the abscess cavity copious sterile saline solution hemostasis was good. I then packed the wound with quarter-inch iodoform gauze. There is then cleaned and then it was dressed with 4x4 gauze, Kerlix gauze, and a 4in Gautam wrap. The patient tolerated the procedure well no complications. All sponges, needles, and instrument counts were correct at the end procedure. EBL was _5__cc. The patient was awakened and taken to recovery in stable and satisfactory condition. Implants None Estimated Blood Loss 5 Drains No Packing Yes ( quarter-inch iodoform gauze in abscess cavity left upper arm.) Pathology Other ( Culture swab from abscess cavity sent to microbiology) Complications No immediate complications Condition Stable Disposition PACU [facility] Billing Surgery - Charge Forward: Surgery Billing
[2023-05-06] MEDS: oxyCODONE HCL (*CRX) 5 MG TAB IR PO (20:17)
[2023-05-06] MEDS: HYDROmorphone HCL INJ (*CRX) 1 MG/ML SYR 0.5 MG IV PUSH (21:31)
[2023-05-06] MEDS: ONDANSETRON INJ 4 MG/2 ML VIAL IV PUSH (21:57)
[2023-05-07 00:31] LABS: Vancomycin Trough 7.2 ug/mL (10.0-20.0)
[2023-05-07] MEDS: VANCOMYCIN 2,000 MG/NS 500 ML 2,000 MG/500 ML BAG 250 MG IVPB ×3 (01:15→16:12)
[2023-05-07] MEDS: NICOTINE (*PBKC) 21 MG PATCH 1 PATCH TRANSDERM ×2 (01:33→08:44)
[2023-05-07] MEDS: LORazepam INJ (*CRX) 2 MG/ML VIAL 1 MG IV PUSH (01:35)
[2023-05-07] MEDS: oxyCODONE HCL (*CRX) 5 MG TAB IR PO ×2 (01:38→21:19)
[2023-05-07 05:47] VITALS: BP 100/67; PULSE 85; RESP 16; TEMP 36.2; O2SAT 97
[2023-05-07] MEDS: SODIUM CHLORIDE 0.9% IV 1,000 ML 70 ML IV CONT (07:56)
[2023-05-07 08:17] LABS: Alanine Aminotransferase 27 U/L (6-35); Albumin Level 2.4 g/dL (3.5-5.1); Alkaline Phosphatase 60 U/L (38-126); Anion Gap 2 mmol/L (8-16); Aspartate Amino Transferase 29 U/L (14-36); Bilirubin,Total 0.3 mg/dL (0.2-1.3); Blood Urea Nitrogen 4 mg/dL (7-17); Calcium 8.1 mg/dL (8.4-10.2); Carbon Dioxide 25 mmol/L (22-30); Chloride 108 mmol/L (98-107); Estimated CRCL calculation 123 ml/min; Estimated Glomerular Filt Rate > 60; Glucose 107 mg/dL (65-110); Potassium 4.3 mmol/L (3.4-5.0); Sodium 135 mmol/L (137-145)
[2023-05-07] MEDS: DOXYCYCLINE HYCLATE 100 MG TABLET PO ×2 (08:44→21:17)
[2023-05-07] MEDS: HYDROcodone/acetaminophen (*CRX) 5-325 MG TABLET 1 TAB PO ×2 (08:45→18:37)
--- NOTE | 2023-05-07 10:32 | PM.PNGS ---
Progress Note: A&P Assessment and Plan (1) Abscess of left upper extremity: Code(s): L02.414 - Cutaneous abscess of left upper limb Status: Acute Assessment and Plan: Continue daily packing changes with quarter-inch iodoform gauze. Surgically stable for discharge. Discharge antibiotics at hospitalist discretion. Follow up with Dr. Shrestha 1 week. (2) Cellulitis of arm, left: Code(s): L03.114 - Cellulitis of left upper limb Status: Acute (3) IV drug user: Code(s): F19.90 - Other psychoactive substance use, unspecified, uncomplicated Status: Acute (4) Hepatitis C: Code(s): B19.20 - Unspecified viral hepatitis C without hepatic coma Status: Acute Subjective Subjective Date/Time Seen: 05/07/23 10:32 Interval history: Doing well. Pain controlled. No fevers. Exam Skin: Other: Left arm packing removed. No purulence drainage. Mild surrounding erythema and induration. Objective Data Vital Signs Vital Signs: Vital Signs - 24 hr 05/06/23 14:00 05/06/23 15:36 05/06/23 16:18 Temperature 36.2 C L 36.6 C 37.2 C Pulse Rate 92 68 92 Respiratory Rate 14 16 17 Blood Pressure 89/51 L 99/60 L 115/105 H Pulse Oximetry 100 94 94 Oxygen Delivery Room Air Room Air 05/06/23 16:33 05/06/23 16:48 05/06/23 17:02 Temperature Pulse Rate 78 77 84 Respiratory Rate 21 H 19 16 Blood Pressure 96/59 L 102/87 93/55 L Pulse Oximetry 97 95 97 Oxygen Delivery Room Air Room Air Room Air 05/06/23 17:30 05/06/23 20:52 05/06/23 20:00 Temperature 36.2 C L 35.9 C L Pulse Rate 74 90 Respiratory Rate 20 16 Blood Pressure 105/74 113/67 Pulse Oximetry 96 100 Oxygen Delivery Room Air 05/07/23 05:47 Temperature 36.2 C L Pulse Rate 85 Respiratory Rate 16 Blood Pressure 100/67 Pulse Oximetry 97 Oxygen Delivery Intake/Output Intake/Output: Intake & Output 05/04/23 05/05/23 05/06/23 05/07/23 23:59 23:59 23:59 23:59 Intake Total 1780 3440 920 Balance 1780 3440 920 Meds/Results Medications: Active Medications Generic Name Dose Route Start Last Admin Trade Name Freq PRN Reason Stop Dose Admin Acetaminophen 650 mg 05/05/23 05:25 05/05/23 06:59 Acetaminophen 325 Mg Tablet PO 650 mg Q4H PRN Administration Mild Pain (1-3) or Fever Hydrocodone Bitart/Acetaminophen 1 tab 05/06/23 16:24 05/07/23 08:45 Hydrocodone/Acetaminophen (*Crx) 5-325 Mg Tablet PO 1 tab Q4H PRN Administration Pain Rated 4-6 Doxycycline Hyclate 100 mg 05/05/23 12:00 05/07/23 08:44 Doxycycline Hyclate 100 Mg Tablet PO 05/11/23 21:01 100 mg Q12HR ARIANNA Administration Sodium Chloride 1,000 mls @ 70 mls/hr 05/05/23 05:25 05/07/23 07:56 Normal Saline Iv IV CONT 70 mls/hr .[id number] ARIANNA Administration Ceftriaxone Sodium 2 gm in 100 mls @ 200 mls/hr 05/06/23 18:00 05/06/23 17:52 Rocephin 2 Gm/Ns 100 Ml IVPB Infused Q24H ARIANNA Infusion Lactated Ringer's 1,000 mls @ 30 mls/hr 05/06/23 15:40 05/06/23 17:03 Lr - Lactated Ringers Iv IV CONT Infused .Q24H ARIANNA Infusion Lactated Ringer's 1,000 mls @ 30 mls/hr 05/06/23 15:40 05/06/23 17:43 Lr - Lactated Ringers Iv IV CONT Not Given .Q24H ARIANNA Vancomycin HCl 2,000 mg in 500 mls @ 250 mls/hr 05/07/23 01:00 05/07/23 08:46 Vancomycin 2,000 Mg/Ns 500 Ml IVPB 250 mls/hr Q8H ARIANNA Administration Nicotine 1 patch 05/07/23 01:23 05/07/23 08:44 Nicotine (*Pbkc) 21 Mg Patch TRANSDERM 1 patch DAILY ARIANNA Administration Ondansetron HCl 4 mg 05/05/23 05:25 05/06/23 21:57 Ondansetron Inj 4 Mg/2 Ml Vial IV PUSH 4 mg Q4H PRN Administration Nausea Ondansetron HCl 4 mg 05/06/23 15:39 Ondansetron Inj 4 Mg/2 Ml Vial IV PUSH ONCE PRN Nausea Oxycodone HCl 5 mg 05/06/23 16:24 05/07/23 01:38 Oxycodone Hcl (*Crx) 5 Mg Tab Ir PO 5 mg Q6H PRN Administration Pain Rated 7-10 Radiology Results: ITS Impressions
--- NOTE | 2023-05-07 11:00 | WPDANESPN ---
Anes - Prog Note Post-Op Date/Time: 05/07/23 11:00 Cardiovascular status: normal Respiratory status: normal Airway patency: baseline Mental status: baseline Post-Op hydration status: normal Vital Signs: Last Vital Signs Temp 97.1 F L 05/07/23 05:47 Pulse 85 05/07/23 05:47 Resp 16 05/07/23 05:47 BP 100/67 05/07/23 05:47 Pulse Ox 97 05/07/23 05:47 O2 Del Method Room Air 05/06/23 20:00 Pain Score (VAS): 5 I/O: Intake & Output 05/06/23 05/07/23 05/07/23 23:59 07:59 15:59 Intake Total 590 800 620 Balance 590 800 620 Laboratory Tests 05/07/23 07:50 05/06/23 05/07/23 23:14 07:50 WBC Pending RBC Pending Hgb Pending Hct Pending MCV Pending MCH Pending MCHC Pending RDW Pending Plt Count Pending MPV Pending Immature Gran % (Auto) Pending Neut % (Auto) Pending Lymph % (Auto) Pending [place] % (Auto) Pending Eos % (Auto) Pending Baso % (Auto) Pending Lymph # (Auto) Pending [place] # (Auto) Pending Eos # (Auto) Pending Baso # (Auto) Pending Abs Immat Gran (auto) Pending Absolute Neuts (auto) Pending Absolute Nucleated RBC Pending Nucleated RBC % Pending Sodium 135 L Potassium 4.3 Chloride 108 H Carbon Dioxide 25 Anion Gap 2 L BUN 4 L Creatinine 0.60 L Estim Creat Clear Calc 123 Estimated GFR > 60 Glucose 107 Calcium 8.1 L Magnesium 2.0 Total Bilirubin 0.3 AST 29 ALT 27 Alkaline Phosphatase 60 Total Protein 5.0 L Albumin 2.4 L Vancomycin Trough 7.2 L Microbiology 05/05/23 10:01 Blood Blood Culture - Preliminary 05/05/23 08:38 Blood Blood Culture - Preliminary 05/05/23 03:20 Urine Clean Catch Urine Culture - Final Coag neg Staph, not saprophyti Post-procedural complaints: none Patient Feedback: Patient satisfied with anesthetic care.
[2023-05-07 12:12] LABS: Basophils Percent Auto 0.1 % (0.2-1.2); Eosinophils Absolute Auto 0.1 K/mm3 (0-0.3); Eosinophils Percent Auto 1.1 % (0-4.4); Hematocrit 37.9 % (37.0-47.0); Hemoglobin 12.6 g/dL (12.0-15.0); Immature Granulocyte Absolute 0.02 K/mm3 (0.00-0.031); Immature Granulocyte Percent A 0.3 % (0-0.5); Lymphocytes Absolute Auto 2.19 K/mm3 (0.9-3.2); Lymphocytes Percent Auto 31.4 % (18.3-44.2); Mean Corpuscular HGB Conc 33.2 g/dl (32-36); Mean Corpuscular Hemoglobin 30.4 pg (26-34); Mean Corpuscular Volume 91.3 fl (80-100); Mean Platelet Volume 11.1 fl (7.4-10.4); Monocytes Absolute Auto 0.4 K/mm3 (0.1-0.6); Monocytes Percent Auto 5.2 % (2.6-8.5); Neutrophils Absolute Auto 4.3 K/mm3 (1.3-6.7); Neutrophils Percent Auto 61.9 % (45.5-73.1); Platelet Count Result 182 k/mm3 (150-375); Red Blood Count 4.15 M/mm3 (4.2-5.4); Red Cell Distribution Width 13.2 % (11.5-14.5)
[2023-05-07] MEDS: ONDANSETRON INJ 4 MG/2 ML VIAL IV PUSH ×2 (12:37→18:37)
--- NOTE | 2023-05-07 13:30 | PM.IMPN ---
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 No fever chest pain shortness of breath. ER evaluation noted full for white cell count of 15 kg elevated AST ALT elevated positive for chlamydia and Trichomonas hepatitis-C antibody positive started on vancomycin clindamycin meropenem. General surgery consulted. On doxycycline for chlamydia diagnosis left upper extremity cellulitis with CT findings gas collection with no obvious fluid collection the distal anterior upper arm will taper off clindamycin switch meropenem to ceftriaxone. Leukocytosis has normalized. Mild hyponatremia is improved. Continue pain control Status post I and D by General surgery 05/06/2023 culture pending blood culture negative to date. HCV RNA positive needs outpatient follow-up HIV negative DVT prophylaxis SCDs Subjective Date/time seen: 05/07/23 13:30 Interval history: Underwent I&D yesterday feels better. Pain controlled. Remains afebrile labs reviewed. Review of Systems Review of Systems: All systems reviewed & are unremarkable except as noted in HPI and below Exam Narrative: GENERAL: Well-appearing, well-nourished, and in no acute distress. HEAD: Normocephalic, atraumatic. EYES: PERRLA and EOMI. ENT: Nares clear, no rhinorrhea or epistaxis.? Mucous membranes moist. NECK: Supple. CHEST: Clear to auscultation.? No respiratory distress. HEART: Regular rate and rhythm.? No murmur heard.? Normal peripheral pulses. ABDOMEN: Soft, nontender, nondistended, normal active bowel sounds. EXTREMITIES: Normal range of motion.? No edema. Left arm with dressing in place SKIN: Warm, dry, no rash. NEURO: No focal deficits.? Alert and oriented x3. PSYCH: Normal mood and affect. Objective Data Vital Signs Vital Signs: Vital Signs - 24 hr 05/06/23 14:00 05/06/23 15:36 05/06/23 16:18 Temperature 97.2 F L 97.9 F 99.0 F Pulse Rate 92 68 92 Respiratory Rate 14 16 17 Blood Pressure 89/51 L 99/60 L 115/105 H Pulse Oximetry 100 94 94 Oxygen Delivery Room Air Room Air 05/06/23 16:33 05/06/23 16:48 05/06/23 17:02 Temperature Pulse Rate 78 77 84 Respiratory Rate 21 H 19 16 Blood Pressure 96/59 L 102/87 93/55 L Pulse Oximetry 97 95 97 Oxygen Delivery Room Air Room Air Room Air 05/06/23 17:30 05/06/23 20:52 05/06/23 20:00 Temperature 97.2 F L 96.6 F L Pulse Rate 74 90 Respiratory Rate 20 16 Blood Pressure 105/74 113/67 Pulse Oximetry 96 100 Oxygen Delivery Room Air 05/07/23 05:47 Temperature 97.1 F L Pulse Rate 85 Respiratory Rate 16 Blood Pressure 100/67 Pulse Oximetry 97 Oxygen Delivery Intake/Output Intake/Output: Intake & Output 05/04/23 05/05/23 05/06/23 05/07/23 23:59 23:59 23:59 23:59 Intake Total 1780 3440 1420 Balance 1780 3440 1420 Meds/Results Medications: Active Medications Generic Name Dose Route Start Last Admin Trade Name Freq PRN Reason Stop Dose Admin Acetaminophen 650 mg 05/05/23 05:25 05/05/23 06:59 Acetaminophen 325 Mg Tablet PO 650 mg Q4H PRN Administration Mild Pain (1-3) or Fever Hydrocodone Bitart/Acetaminophen 1 tab 05/06/23 16:24 05/07/23 08:45 Hydrocodone/Acetaminophen (*Crx) 5-325 Mg Tablet PO 1 tab Q4H PRN Administration Pain Rated 4-6 Doxycycline Hyclate 100 mg 05/05/23 12:00
[2023-05-07 14:00] VITALS: BP 105/62; PULSE 62; RESP 14; TEMP 36.4; O2SAT 97
[2023-05-07] MEDS: cefTRIAXone 2 GM/NS 100 ML 2 GM/100 ML BAG IVPB (18:38)
[2023-05-07 20:39] VITALS: BP 129/69; PULSE 86; RESP 16; TEMP 36.8; O2SAT 99
[2023-05-07 21:37] VITALS: BP 93/53; PULSE 84; RESP 14; TEMP 36.3; O2SAT 100
[2023-05-07 22:37] VITALS: BP 100/57; PULSE 91; RESP 16; TEMP 36.5; O2SAT 98
[2023-05-08 01:33] LABS: Vancomycin Trough 16.1 ug/mL (10.0-20.0)
[2023-05-08] MEDS: VANCOMYCIN 2,000 MG/NS 500 ML 2,000 MG/500 ML BAG 250 MG IVPB ×2 (02:25→09:33)
[2023-05-08 04:52] VITALS: BP 107/66; PULSE 80; RESP 16; TEMP 36.2; O2SAT 98
[2023-05-08 07:14] LABS: Estimated CRCL calculation 123 ml/min; Estimated Glomerular Filt Rate > 60
[2023-05-08 08:32] VITALS: BP 98/60; PULSE 78; RESP 16; TEMP 36.3; O2SAT 99
[2023-05-08] MEDS: NICOTINE (*PBKC) 21 MG PATCH 1 PATCH TRANSDERM (09:30)
[2023-05-08] MEDS: DOXYCYCLINE HYCLATE 100 MG TABLET PO (09:31)
[2023-05-08] MEDS: HYDROcodone/acetaminophen (*CRX) 5-325 MG TABLET 1 TAB PO (09:31)
[2023-05-08] MEDS: ONDANSETRON INJ 4 MG/2 ML VIAL IV PUSH (09:32)
--- NOTE | 2023-05-08 10:33 | PM.DS ---
DS: Admitting Diagnosis Discharge Date 05/08/2023 Admitting Diagnosis Left arm cellulitis with abscess DS: Discharge Diagnosis Discharge Diagnosis (1) Chlamydia: Code(s): A74.9 - Chlamydial infection, unspecified Status: Acute (2) Cellulitis of arm, left: Code(s): L03.114 - Cellulitis of left upper limb Status: Acute (3) Tobacco abuse: Code(s): Z72.0 - Tobacco use Status: Acute (4) IV drug user: Code(s): F19.90 - Other psychoactive substance use, unspecified, uncomplicated Status: Acute (5) Hepatitis C: Code(s): B19.20 - Unspecified viral hepatitis C without hepatic coma Status: Acute DS: Summary Hospital Course Hospital Course: 33-year-old female presented with left arm swelling and redness of 2 days history of IV drug use of methamphetamine and injects frequently on left arm.? No fever chest pain shortness of breath.? ER evaluation noted full for white cell count of 15 k elevated AST ALT elevated positive for chlamydia and hepatitis-C antibody positive started on vancomycin clindamycin meropenem.? General surgery consulted.? On doxycycline for chlamydia diagnosis. Left upper extremity cellulitis with CT findings gas collection with no obvious fluid collection the distal anterior upper arm will taper off clindamycin switch meropenem to ceftriaxone.? Leukocytosis has normalized.? Mild hyponatremia is improved.? Continue pain control. Status post I and D by General surgery 05/06/2023 culture pending blood culture negative to date. Will switch to Bactrim and will continue with dressing changes as ordered HCV RNA positive needs outpatient follow-up HIV negative DVT prophylaxis SCDs Time Spent with Patient Time attestation: Total time spent providing and/or coordinating discharge services: 30 minutes Exam Narrative: GENERAL: Well-appearing, well-nourished, and in no acute distress. HEAD: Normocephalic, atraumatic. EYES: PERRLA and EOMI. ENT: Nares clear, no rhinorrhea or epistaxis.? Mucous membranes moist. NECK: Supple. CHEST: Clear to auscultation.? No respiratory distress. HEART: Regular rate and rhythm.? No murmur heard.? Normal peripheral pulses. ABDOMEN: Soft, nontender, nondistended, normal active bowel sounds. EXTREMITIES: Normal range of motion.? No edema. Left arm with dressing in place SKIN: Warm, dry, no rash. NEURO: No focal deficits.? Alert and oriented x3. PSYCH: Normal mood and affect. DS: Data Data Completed and Pending Labs on day of discharge: Labs from last 24 hours 05/08/23 05/08/23 05/07/23 06:37 00:18 12:06 WBC 7.0 RBC 4.15 L Hgb 12.6 Hct 37.9 MCV 91.3 D MCH 30.4 MCHC 33.2 RDW 13.2 Plt Count 182 MPV 11.1 H Immature Gran % (Auto) 0.3 Neut % (Auto) 61.9 Lymph % (Auto) 31.4 [place] % (Auto) 5.2 Eos % (Auto) 1.1 Baso % (Auto) 0.1 L Lymph # (Auto) 2.19 [place] # (Auto) 0.4 Eos # (Auto) 0.1 Baso # (Auto) 0.0 Abs Immat Gran (auto) 0.02 Absolute Neuts (auto) 4.3 Absolute Nucleated RBC 0.0 Nucleated RBC % 0.0 Creatinine 0.60 L Estim Creat Clear Calc 123 Estimated GFR > 60 Vancomycin Trough 16.1 Preliminary micro results at discharge 05/06/23 15:55 Anaerobic Culture - Preliminary Abscess Aerobic Culture - Preliminary 05/05/23 10:01 Blood Culture - Preliminary Blood 05/05/23 08:38 Blood Culture - Preliminary Blood Procedures/Treatments: Procedure Note - Detailed Date of Procedure 05/06/23 Pre-op Diagnosis cellulitis left uppper extremity Post-op Diagnosis Other ( Left upper extremity abscess.) Procedure Performed ? Incision and drainage of left upper arm abscess. Surgeon Baldomero Shrestha MD Anesthesia MAC and Local Indications ? Patient is a 33-year-old female was admitted to the hospital 2 days ago after complaining having redness and swelling in her left upper arm just proximal to the antecubital fossa w
== END 2023-05-08 11:25 | disposition home or self-care (01) | DRG 603 ==
LOC: ANHED 06:43 → ANH3MEDSUR 06:47
PROVIDERS: Internal Medicine; Surgery; Admitting Provider Internal Medicine; Emergency Provider Emergency Medicine; Visit Provider Internal Medicine
PROC: 0J9F0ZX Drainage of Left Upper Arm Subcutaneous Tissue and Fascia, Open Approach, Diagnostic (ICD-10-PCS; principal; 2023-05-06 16:00)
DX: L03.114 Cellulitis of left upper limb (principal); E87.1 Hypo-osmolality and hyponatremia; L02.414 Cutaneous abscess of left upper limb; A74.9 Chlamydial infection, unspecified; B19.20 Unspecified viral hepatitis C without hepatic coma; F15.90 Other stimulant use, unspecified, uncomplicated; F17.210 Nicotine dependence, cigarettes, uncomplicated; Z90.49 Acquired absence of other specified parts of digestive tract
CPT/HCPCS: 36415; 73080; 73200; 80053; 80202; 81001; 81025; 82565; 83605; 83735; 85025; 85380; 87040; 87070; 87075; 87086; 87205; 87491; 87591; 96365; 96367; 96375; 99285; A9270; G0378; J0696; J1170; J2060; J2185; J2250; J2405; J2704; J3010; J3370; J7030; J7120

== ENCOUNTER 2023-07-11 11:31 | Inpatient (IN) | payer OTHER, SELFPAY ==
[2023-07-11] VITALS (20 sets, daily range): BP systolic 95–115; BP diastolic 48–78; PULSE 90–132; RESP 20–33; TEMP 36.4–36.7; O2SAT 93–100; BMI 31.8
--- NOTE | ~2023-07-11 | XR_ITS ---
Portable chest x-ray Comparison: None Clinical History: Shortness of breath Findings: There is hazy left basilar airspace disease extending towards (compare right lung essentia lly clear. Cardiomediastinal silhouette is stable. Bones and soft tissues are unremarkable. Impression: Left lower lobe pneumonia. Reviewed, dictated and finalized at [facility]. Impression: Left lower lobe pneumonia.
--- NOTE | 2023-07-11 12:03 | ED.OVERDOSE ---
HPI - Overdose General Chief Complaint: Overdose Stated Complaint: fentanyl OD - Narcan given Time Seen by Provider: 07/11/23 11:40 History of Present Illness HPI Narrative: Patient is a 33-year-old female history of polysubstance use, typically methamphetamines here today after an overdose. Patient notes that earlier today she injected into her left hand and unknown substance. she was unsure if she was injecting methamphetamines or fentanyl and suspects it was fentanyl. She reportedly went unresponsive, bystander CPR was performed. Bystanders gave 3 doses of intranasal Narcan. Unsure if she actually had any pulse deficits as she was responsive when EMS arrived. She is currently complaining of some shortness of breath. She denies having any fever, chills, shortness of breath, cough this morning prior to overdosing. She denies any current wounds or abscess. Related Data Home Medications Medication Instructions Recorded Confirmed No Home Medications 07/11/23 07/11/23 Allergies Allergy/AdvReac Type Severity Reaction Status Date / Time No Known Allergies Allergy Verified 07/11/23 16:31 Review of Systems Review of Systems: All systems reviewed & are unremarkable except as noted in HPI and below PMFSH Past Medical History Medical History Anxiety and depression Endotracheally intubated for COVID in 2021 1 para 1 child lives with MGM Hepatitis C Not treated as of 07/11/23 History of seizure due to alcohol withdrawal Hx of renal failure at age 17yo Hx of suicide attempt at age 13yo (involving a gun). IV drug user Surgical History Surgical History (Updated 07/11/23 @ 16:36 by Jason Quinn MD) H/O left wrist surgery x2 S/P cholecystectomy Family History Family History (Updated 07/11/23 @ 17:20 by Jason Quinn MD) Father Diabetes mellitus Mother Hyperlipidemia Social History Social History (Updated 07/11/23 @ 17:23 by Jason Quinn MD) Social History: Spokes tobacco up to 1ppd x 20yrs (started when she was 13yo). Hx of alcoholism but sober x 10years. Current IV drug abuse as mentioned above. Lives with boyfriend and roommate. Full code. She nominates her mother to be the individual who would make medical decisions for her if she is unable. The child lives with the patient's mother Years smoked: 20 Smoking status: Current every day smoker Tobacco type: cigarettes and e-cigarettes/vaping Second hand tobacco smoke exposure: Yes Alcohol intake: former Substance use: current Substance use type: IV drugs and methamphetamine Other substance usage details: Last use: 07/11/23 Do You Feel Safe in your Home?: Yes Lack of Transportation: YES Lack of Food: Sometimes True Current Housing: I Have Housing Concerned About Future Housing: No Difficulty Paying Gas/Electric Bills: No Difficulty Paying for Meds: No Currently Unemployed: YES Education: Trade/Vocational Certificate Difficulty w/ Childcare or Family Care: YES Living arrangements: with family Spiritual care concerns: No Exam Narrative: GENERAL: ill-appearing, diaphoretic. HEAD: Normocephalic, atraumatic. EYES: PERRLA and EOMI. ENT: Nares clear. Mucous membranes moist. NECK: Supple. CHEST: coarse bilateral breath sounds present. In moderate respiratory distress, tachypneic HEART: tachycardic. Normal peripheral pulses. ABDOMEN: Soft, nontender, nondistended. EXTREMITIES: Normal range of motion. No edema. SKIN: Warm, dry, no rash. NEURO: No focal deficits. Alert and oriented x3. PSYCH: Normal mood and affect. Course Course Emergency Course: Chart review performed, patient here via EMS from her house. She reportedly injected fentanyl, they were initially called out for a cardiac arrest and CPR was in process, Narcan reportedly given on scene by bystanders. patient was awake on EMS arrival, coughing and vomiting through transport, saturating in the
[2023-07-11 12:05] LABS: Basophils Percent Auto 0.2 % (0.2-1.2); Eosinophils Absolute Auto 0.1 K/mm3 (0-0.3); Eosinophils Percent Auto 0.7 % (0-4.4); Hematocrit 49.8 % (37.0-47.0); Hemoglobin 16.7 g/dL (12.0-15.0); Immature Granulocyte Absolute 0.02 K/mm3 (0.00-0.031); Immature Granulocyte Percent A 0.2 % (0-0.5); Lymphocytes Absolute Auto 2.03 K/mm3 (0.9-3.2); Lymphocytes Percent Auto 23.9 % (18.3-44.2); Mean Corpuscular HGB Conc 33.5 g/dl (32-36); Mean Corpuscular Hemoglobin 29.8 pg (26-34); Mean Corpuscular Volume 88.9 fl (80-100); Monocytes Absolute Auto 0.4 K/mm3 (0.1-0.6); Monocytes Percent Auto 4.5 % (2.6-8.5); Neutrophils Percent Auto 70.5 % (45.5-73.1); Platelet Count Result 244 k/mm3 (150-375); Red Cell Distribution Width 13.3 % (11.5-14.5); White Blood Count 8.5 K/mm3 (4.5-10.0)
[2023-07-11 12:19] LABS: Alanine Aminotransferase 74 U/L (6-35); Albumin Level 4.1 g/dL (3.5-5.1); Alkaline Phosphatase 79 U/L (38-126); Anion Gap 6 mmol/L (4-12); Aspartate Amino Transferase 73 U/L (14-36); Bilirubin,Total 0.7 mg/dL (0.2-1.3); Blood Urea Nitrogen 12 mg/dL (7-17); Calcium 9.2 mg/dL (8.4-10.2); Carbon Dioxide 27 mmol/L (22-30); Chloride 104 mmol/L (98-107); Estimated Glomerular Filt Rate > 60; Glucose 94 mg/dL (65-110); Sodium 137 mmol/L (137-145)
[2023-07-11 12:24] LABS: Acetaminophen < 10 ug/mL (10-30); Salicylate < 1.0 mg/dL (2-20)
[2023-07-11 12:25] LABS: Ethanol < 10 mg/dL (<10)
[2023-07-11 12:27] LABS: NT Pro B Type Natriuretic Pept 59 pg/mL (19.9-100)
[2023-07-11 12:30] LABS: Troponin I 0.021 ng/mL (0.000-0.034)
[2023-07-11 12:45] LABS: Influenza A QL RT-PCR Negative (Negative); Influenza B QL RT-PCR Negative (Negative); RSV RNA, RT-PCR Negative (Negative); SARS-CoV-2 RNA PCR Negative (Negative)
[2023-07-11 12:52] LABS: SPREG INTERNAL CONTROL Positive; Serum Qual hCG Negative
--- NOTE | 2023-07-11 13:36 | PC.NURSE ---
patient wanted to try not having the bipap on, patient tolerated for about 10 minutes before sats dropped to 84. bipap back in place. current o2 sat 99%
[2023-07-11 13:57] LABS: Barbiturate Screen Urine Negative (Negative); Benzodiazepines Screen Urine Negative (Negative)
--- NOTE | 2023-07-11 14:20 | ECG_ITS ---
SEE SCANNED COPY FOR CONFIRMED REPORT MTDD
[2023-07-11 14:23] LABS: Appearance Urine Cloudy (Clear); Bacteria Urine 4+ /hpf; Bilirubin Urine 1+ (Negative); Blood Urine Negative (Negative); Color Urine Dark Yellow (Yellow); Glucose Urine UA Negative (Negative); Hyaline Casts Urine Present /lpf; Ketones Urine Trace mg/dL (Negative); Leukocyte Esterase Ur Negative LEU/UL (Negative); Nitrate Urine Positive (Negative); Non Pathogenic Casts >20; Protein Urine 3+ mg/dL (Negative); Squamous Epithelial Cell Urine Few /hpf (Few); pH Urine 6.5 (5.0-9.0)
[2023-07-11 14:25] LABS: Add Urine Microscopic? YES
[2023-07-11 14:50] LABS: Cannabinoid Screen Urine Negative (Negative); Cocaine Screen Urine Negative (Negative); Methadone Screen Urine Negative (Negative); Opiate Screen Urine Negative (Negative); Phencyclidine Screen Urine Negative (Negative)
[2023-07-11 15:07] LABS: Amphetamine Screen Urine Positive (Negative)
--- NOTE | 2023-07-11 16:00 | ADMGEN ---
This patient, Shameka Salas, was admitted to IMU Room 205-02. Patient/family oriented to hospital policies and general routines including ID bracelet, bed and alarms, visiting hours, pain management, procedures, bathroom and other care routines, personal items, smoking policy, room service/diet, and visiting hours. Information on how to activate the Rapid Response Team has been discussed. Patient/Family are encouraged to report perceived risks to care and to ask questions if they do not understand what they are told or what they should do.
--- NOTE | 2023-07-11 16:31 | PM.IMHP ---
H&P: HPI History of Present Illness Date/Time: 07/11/23 16:31 Chief Complaint: Overdose Narrative: 33yo female with hx of IV polysubstance use (typically methamphetamines) who is brought in to the ED by EMS for potential drug overdose. Patient was seen her on 05/05/23 for left arm swelling and redness and left upper arm abscess. She underwent I&D on 05/06/23 and did well. Cx negative. She was discharged 2 days later on Bactrim and Doxycycline. The wound has healed nicely. Patient states she only has been using methamphetamines on and off for the past 4 years (usually 2-3x/week). She denies other drug use. This morning, she injected meth into her left wrist area and a short time later became unresponsive. She awoke with the roommate doing CPR. Her boyfriend had given her 3 dose of intranasal narcan. She believes the meth was laced with fentanyl. She was able to stand and walk outside. She was having palpable chest wall pain, cough with hemoptysis and post-tussive emesis. She was feeling well without complaints prior to overdose including no hematuria or dysuria. EMS was called and she was brought to the ED for evaluation. Unclear if she actually lost a pulse. In the ED, she was tachycardic, hypoxic and tachypneic. WBC and plt count normally. Hgb 16.7. CMP normal except AST 73 and ALT 74. Troponin negative. UA consistent with UTI. UDS was positive for amphetamines. Alcohol, acetaminophen and salicylates negative. Influenza, COVID and RSV PCR negative. CXR showing LLL hazy basilar airspace disease consistent with PNA. EKG normal. No medications given in ED. She was admitted for further care. Review of Systems Review of Systems: All systems reviewed & are unremarkable except as noted in HPI and below PMFSH Past Medical History Medical History Anxiety and depression Endotracheally intubated for COVID in 2021 1 para 1 child lives with MGM Hepatitis C Not treated as of 07/11/23 History of seizure due to alcohol withdrawal Hx of renal failure at age 17yo Hx of suicide attempt at age 13yo (involving a gun). IV drug user Surgical History Surgical History (Updated 07/11/23 @ 16:36 by Jason Quinn MD) H/O left wrist surgery x2 S/P cholecystectomy Family History Family History (Updated 07/11/23 @ 17:20 by Jason Quinn MD) Father Diabetes mellitus Mother Hyperlipidemia Social History Social History (Updated 07/11/23 @ 17:23 by Jason Quinn MD) Social History: Spokes tobacco up to 1ppd x 20yrs (started when she was 13yo). Hx of alcoholism but sober x 10years. Current IV drug abuse as mentioned above. Lives with boyfriend and roommate. Full code. She nominates her mother to be the individual who would make medical decisions for her if she is unable. The child lives with the patient's mother Years smoked: 20 Smoking status: Current every day smoker Tobacco type: cigarettes and e-cigarettes/vaping Second hand tobacco smoke exposure: Yes Alcohol intake: former Substance use: current Substance use type: IV drugs and methamphetamine Other substance usage details: Last use: 07/11/23 Do You Feel Safe in your Home?: Yes Lack of Transportation: YES Lack of Food: Sometimes True Current Housing: I Have Housing Concerned About Future Housing: No Difficulty Paying Gas/Electric Bills: No Difficulty Paying for Meds: No Currently Unemployed: YES Education: Trade/Vocational Certificate Difficulty w/ Childcare or Family Care: YES Living arrangements: with family Spiritual care concerns: No Meds Home Medications and Allergies Home Medications Medication Instructions Recorded Confirmed Type No Home Medications 07/11/23 07/11/23 History Allergies Allergy/AdvReac Type Severity Reaction Status Date / Time No Known Allergies Allergy Verified 07/11/23 16:31 Vital Signs Vital Signs - 24 hr 07/11/23 11:30 07/11/23 11:38 07/11/23 11:41
[2023-07-11] MEDS: SODIUM CHLORIDE 0.9% IV 1,000 ML 100 ML IV CONT (17:51)
[2023-07-11 20:39] LABS: SPREG INTERNAL CONTROL Positive; Serum Qual hCG Negative
[2023-07-11] MEDS: FAMOTIDINE 20 MG TABLET PO (20:54)
[2023-07-11 21:06] LABS: HIV 1/2 Ab P24 Ag Result Negative (Negative)
[2023-07-11 21:10] LABS: Hepatitis B Surface Antigen Negative (Negative)
[2023-07-11 21:16] LABS: HAV RESULT Negative (Negative); Hepatitis B Core IgM Result Negative (Negative)
[2023-07-11 21:31] LABS: Hepatitis C Virus Antibody Reactive (Negative)
[2023-07-11] MEDS: ACETAMINOPHEN 325 MG TABLET 650 MG PO (22:59)
[2023-07-11] MEDS: NICOTINE (*PBKC) 21 MG PATCH 1 PATCH TRANSDERM (23:01)
[2023-07-12] VITALS (14 sets, daily range): BP systolic 104–117; BP diastolic 55–59; PULSE 82–101; RESP 16–18; TEMP 36.1–36.7; O2SAT 97–100
[2023-07-12 09:01] LABS: Glucose Point of Care 100 mg/dl (65-105)
[2023-07-12] MEDS: NICOTINE (*PBKC) 21 MG PATCH 1 PATCH TRANSDERM (09:43)
[2023-07-12] MEDS: FAMOTIDINE 20 MG TABLET PO (09:43)
[2023-07-12] MEDS: ENOXAPARIN 40 MG/0.4 ML SYRINGE SUB-Q (09:45)
--- NOTE | 2023-07-12 17:29 | PM.DS ---
DS: Admitting Diagnosis Discharge Date 07/12/23 Admitting Diagnosis Unintentional overdose DS: Discharge Diagnosis Discharge Diagnosis (1) Overdose of opiate or related narcotic: Qualifiers: Encounter type: initial encounter Injury intent: accidental or unintentional Qualified Code(s): T40.601A - Poisoning by unspecified narcotics, accidental (unintentional), initial encounter Code(s): T40.601A - Poisoning by unspecified narcotics, accidental (unintentional), initial encounter Status: Acute (2) Acute hypoxic respiratory failure: Code(s): J96.01 - Acute respiratory failure with hypoxia Status: Acute (3) Aspiration pneumonitis: Code(s): J69.0 - Pneumonitis due to inhalation of food and vomit Status: Acute (4) IV drug user: Code(s): F19.90 - Other psychoactive substance use, unspecified, uncomplicated Status: Acute (5) UTI (urinary tract infection): Code(s): N39.0 - Urinary tract infection, site not specified Status: Acute (6) Tobacco abuse: Code(s): Z72.0 - Tobacco use Status: Acute DS: Summary Hospital Course Reason for hospitalization: 33yo female with hx of IV polysubstance use (typically methamphetamines) who is brought in to the ED by EMS for potential drug overdose.? Please see H&P for details. Hospital Course: On the morning of admission roger became unresponsive after using meth. She awoke with the roommate doing CPR. Her boyfriend had given her 3 dose of intranasal narcan. She was brought into the ED by EMS. In the ED, she was tachycardic, hypoxic and tachypneic. WBC and plt count normally. Hgb 16.7. CMP normal except AST 73 and ALT 74. She has known untreated Hepatitis C. Troponin negative.? UA consistent with UTI. UDS was positive for amphetamines. Alcohol, acetaminophen and salicylates negative. Influenza, COVID and RSV PCR negative. CXR showing LLL hazy basilar airspace disease consistent with PNA.? EKG normal. No medications given in ED. She was admitted for further care. Patient was monitored for signs or symptoms of withdrawal but remained stable.? She was given IV fluid. Care coordination consulted to discuss drug rehab.? Patient was educated about the benefits of abstaining from drug use.? She voiced understanding this. Patient was placed on supplemental oxygen by EMS.? Patient was on 4 L of oxygen on presentation. Chest x-ray shows left lower lobe infiltrate which could be hemorrhage or contusion from the chest compression given her complaint of hemoptysis.? Consider also pneumonitis from aspiration since she was having emesis.? White count was normal.?No evidence of PNA. Shew was weaned to room air. Patient with a history of IV drug. HIV and hepatitis negative except for Hepatitis C Ab positive. She was encouraged to have this treated.? test was negative. She was educated about seeking medical assistance in obtaining a forn of control if not desiring to get . Patient was educated about the benefits of smoking cessation. She has Narcan at home. She overall did well and was able to be discharged home on 07/12/23 Status at Discharge Cognitive/behavioral status at discharge: stable Time Spent with Patient Time attestation: Total time spent providing and/or coordinating discharge services: 35 minutes Time spent: Greater than 30 minutes Specific discharge activities: patient and boyfriend education Exam Narrative: AF 97.4 107/57 82 16 97% ra Gen - NARD Chest - CTA bilaterally. Nml RR. CV - RRR S1/S2; Tele showing no signifincat dysrhythmias Abd - soft, NT/ND Ext - no pedal edema. Neuro - nonfocal Psych - normal mood and affect. Skin - warm and dry. DS: Data Data Completed and Pending Labs on day of discharge: Labs from last 24 hours 07/12/23 07/11/23 07:39 19:38 POC Capillary Glucose 100 Serum HCG, Qual Negative Hepatitis A IgM Ab Negative Hep Bs Antigen
[2023-07-15 12:54] LABS: Hepatitis C RNA, Quant PCR 1250000 IU/mL (NOT DETECTED)
== END 2023-07-12 17:53 | disposition home or self-care (01) | DRG 917 ==
LOC: ANHED 14:20 → ANHIMU 15:26
PROVIDERS: Admitting Provider General Practice; Emergency Provider Student in an Organized Health Care Education/Training Program; Referring Provider Emergency Medicine; Visit Provider Internal Medicine
DX: T40.601A Poisoning by unspecified narcotics, accidental (unintentional), initial encounter (principal); J69.0 Pneumonitis due to inhalation of food and vomit; J96.01 Acute respiratory failure with hypoxia; N39.0 Urinary tract infection, site not specified; B19.20 Unspecified viral hepatitis C without hepatic coma; F19.90 Other psychoactive substance use, unspecified, uncomplicated; F17.210 Nicotine dependence, cigarettes, uncomplicated; F41.9 Anxiety disorder, unspecified; F32.A Depression, unspecified; Z91.51 Personal history of suicidal behavior; Z90.49 Acquired absence of other specified parts of digestive tract; Z20.822 Contact with and (suspected) exposure to COVID-19
CPT/HCPCS: 36415; 71045; 80053; 80074; 80307; 81001; 82948; 83735; 83880; 84484; 84703; 85025; 86703; 87077; 87086; 87088; 87181; 87522; 87637; 93005; 94002; 99285; A9270; G0432; J1650; J7030